=== PATIENT | female | born 1955 | race Caucasian/White ===

== ENCOUNTER 2017-02-26 18:33 | Inpatient (IN) | payer MEDICAID ==
[2017-02-26 19:03] VITALS: BMI 22.8
--- NOTE | 2017-02-26 19:19 | C.PDOC ---
History Of Present Illness 61 y/o female presents to the ED s/p syncopal episode yesterday while in the shower. Pt now complaining of chest pain. Pt denies head injury, palpitations, SOB, headache, vomiting or any other complaints. Chief Complaint (Nursing): Medical Clearance History Per: Patient History/Exam Limitations: no limitations Severity: Mild Recent travel outside of the [place]: No Past Medical History Reviewed: Historical Data, Nursing Documentation, Vital Signs Vital Signs: Last Vital Signs Temp 97.7 F 02/26/17 19:03 Pulse 72 02/26/17 20:19 Resp 20 02/26/17 20:19 BP 147/91 H 02/26/17 20:19 Pulse Ox 100 02/26/17 22:40 - Medical History PMH: Arthritis, HTN Family History: States: Unknown Family Hx - Social History Hx Alcohol Use: No Hx Substance Use: No - Immunization History Hx Tetanus Toxoid Vaccination: No Hx Influenza Vaccination: No Review Of Systems Except As Marked, All Systems Reviewed And Found Negative. Constitutional: Negative for: Fever Cardiovascular: Positive for: Chest Pain. Negative for: Palpitations Respiratory: Negative for: Shortness of Breath Gastrointestinal: Negative for: Vomiting Neurological: Positive for: Other (syncopal episode). Negative for: Weakness, Numbness, Headache, Dizziness Physical Exam - Physical Exam Appears: Non-toxic, No Acute Distress Skin: Warm, Dry, No Rash Head: Atraumatic, Normacephalic Eye(s): bilateral: PERRL, EOMI Nose: Normal Neck: Normal ROM, Supple Chest: Symmetrical, Tenderness (diffuse) Cardiovascular: Rhythm Regular, No Murmur Respiratory: Normal Breath Sounds, No Rales, No Rhonchi, No Wheezing Gastrointestinal/Abdominal: Normal Exam, Soft, No Tenderness Extremity: Normal ROM, No Pedal Edema Extremity: Bilateral: Atraumatic Neurological/Psych: Oriented x3, Normal Speech, Normal Cognition, Normal Motor, Normal Sensation Gait: Steady ED Course And Treatment - Laboratory Results Result Diagrams: 02/26/17 19:55 02/26/17 19:55 ECG: Interpreted By Me, Viewed By Me ECG Interpretation: No Acute Changes, Abnormal Interpretation Of ECG: unusual P-axis, possible ectopic atrial rhtyhm, abnormal tracings Rate From EC O2 Sat by Pulse Oximetry: 100 (on room air) Pulse Ox Interpretation: Normal - Radiology CXR: Interpreted by Me CXR Interpretation: Yes: No Acute Disease. No: Infiltrates, Cardiomegaly - CT Scan/US CT head Other Rad Studies (CT/US): Read By Radiologist, Radiology Report Reviewed CT/US Interpretation: EXAM: CT Head Without Intravenous Contrast. CLINICAL HISTORY: 61 years old, female; Pain; Headache; Headache not specified. TECHNIQUE: Axial computed tomography images of the head/brain without intravenous contrast. This CT exam. was performed using one or more of the following dose reduction techniques: automated exposure. control, adjustment of the mA and/or kV according to patient size, and/or use of iterative. reconstruction technique. COMPARISON: No relevant prior studies available. FINDINGS: Brain: Tiny hypodensities in the left frontal cortex posteriorly it must reflect chronic microvascular. ischemic changes. No hemorrhage. Ventricles: Unremarkable. No ventriculomegaly. Bones/joints: Unremarkable. No acute fracture. Soft tissues: Unremarkable. Sinuses: Unremarkable as visualized. No acute sinusitis. Mastoid air cells: Unremarkable as visualized. No mastoid effusion. IMPRESSION: No acute findings. Thank you for allowing us to participate in the care of your patient. Dictated and Authenticated by: South Kellogg MD. 02/26/2017 8:13 PM Eastern Time ([place] & [place]) NIHSS Stroke Scale - Date/Time Evaluation Performed Date Performed: 02/26/17 Time Performed: 19:21 When Was NIHSS Performed: Baseline - How Severe is the Stroke Level of Consciousness: 0=Alert LOC to Questions: 0=Both comments correct LOC to commands: 0=Obeys both correctly Best Gaze: 0=Normal Visual: 0=No visual loss Facial: 0=Normal Motor Arm - Left: 0=No drift Motor Arm - Right: 0=No drift Motor Leg - Left: 0=No drift Motor Leg - Right: 0=No drift Limb Ataxia: 0=Absent Sensory: 0=Normal Best Language: 0=No aphasia Dysarthia: 0=Normal articulation Extinction & Inattention (Neglect): 0=Normal, no object Score: 0 Medical Decision Making Medical Decision Making: Plan: CT head, EKG, labs, IV fluids Disposition Discussed With : Holden Merrill Doctor Will See Patient In The: Hospital Counseled Patient/Family Regarding: Diagnosis - Disposition Disposition: HOSPITALIZED Disposition Time: 22:40 Condition: STABLE - POA Present On Arrival: None - Clinical Impression Clinical Impression: Syncope - Scribe Statement The provider has reviewed the documentation as recorded by the Scribe Constantin Edwards Provider Attestation: All medical record entries made by the Scribe were at my direction and personally dictated by me. I have reviewed the chart and agree that the record accurately reflects my personal performance of the history, physical exam, medical decision making, and the department course for this patient. I have also personally directed, reviewed, and agree with the discharge instructions and disposition.
[2017-02-26 20:03] LABS: BASO % 0.7 % (0.0-2.0); EOS # 0.1 K/uL (0.0-0.7); EOS % 0.8 % (0.0-4.0); HEMATOCRIT 38.5 % (34.0-47.0); LYMPH # 1.7 K/uL (1.0-4.3); LYMPH % 26.2 % (20.0-40.0); MEAN CELL VOLUME 85.3 fL (81.0-99.0); MEAN CORPUSCULAR HEMOGLOBIN 28.3 pg (27.0-31.0); MEAN CORPUSCULAR HGB CONC 33.2 g/dL (33.0-37.0); MONO # 0.3 K/uL (0.0-0.8); MONO % 4.8 % (0.0-10.0); RED CELL DISTRIBUTION WIDTH 12.5 % (11.5-14.5); WHITE BLOOD COUNT 6.5 K/uL (4.8-10.8)
[2017-02-26 20:05] LABS: CHLORIDE 99 mmol/L (98-107)
[2017-02-26 20:06] LABS: POTASSIUM 4.2 mmol/L (3.6-5.2); SODIUM 141 mmol/L (132-148)
[2017-02-26 20:08] LABS: BILIRUBIN,TOTAL 0.6 mg/dL (0.2-1.3); GFR AFRICAN-AMERICAN > 60
[2017-02-26 20:09] LABS: ALB/GLOB RATIO 1.2 (1.0-2.1); ALKALINE PHOSPHATASE 62 U/L (38-126); ALT/SGPT 30 U/L (9-52); AST/SGOT 53 U/L (14-36); BLOOD UREA NITROGEN 18 mg/dL (7-17); CARBON DIOXIDE 26 mmol/L (22-30); GLUCOSE,RANDOM 104 mg/dL (65-105); TOTAL PROTEIN 8.5 g/dL (6.3-8.3)
[2017-02-27] MEDS: Nitroglycerin 2% Ointment Foilpak UD TOP SCH ×4 (01:20→18:30)
[2017-02-27 08:13] VITALS: RESP 20
--- NOTE | 2017-02-27 08:39 | CT ---
PROCEDURE: CT HEAD WITHOUT CONTRAST. HISTORY: Headache COMPARISON: None available. TECHNIQUE: Axial computed tomography images were obtained through the head/brain without intravenous contrast. Radiation dose: Total exam DLP = 821 mGy-cm. FINDINGS: HEMORRHAGE: No intracranial hemorrhage. BRAIN: No mass effect or edema. Scattered focal lucencies in the subcortical and periventricular white matter suggestive for chronic microvascular ischemic change. Small hypodensities in the left frontal cortex posteriorly which may reflect chronic microvascular ischemic changes. VENTRICLES: Unremarkable. No hydrocephalus. CALVARIUM: Unremarkable. PARANASAL SINUSES: Unremarkable as visualized. No significant inflammatory changes. MASTOID AIR CELLS: Unremarkable as visualized. No inflammatory changes. OTHER FINDINGS: None. IMPRESSION: Chronic microvascular ischemic changes. If focal neurologic deficit persists, consider MRI. These findings were preliminarily reported at 8:13 p.m. on 02/26/[address] South Kellogg from [facility].
--- NOTE | 2017-02-27 08:47 | CON ---
DATE: 02/27/2017 REASON FOR CONSULTATION: Syncopal attack. CHIEF COMPLAINT: The patient was advised to come to [facility] with a history of syncopal attac k at home after taking her shower. From neurological point of view, I was called in to evaluate her for further management. HISTORY OF PRESENT ILLNESS: The patient is a 61-year-old right-handed female who has been s uffering from headache for many years, has been on multiple medications, being stable with that medic ation for her headache. Without medication, she cannot survive. Her headache seems to be controlled with her current medication. She went to take a shower yesterday morning normal. At the time after taking shower, when she was stepping out of the tub, the next thing she realized she was on the floo r. She hurt her hip and left shoulder. It seems a few minutes she lost consciousness and she got up on her own. No similar episodes happened in the past. No history of urine or bowel incontinence at the scene. No bitten tongue. She denies any focal weakness following this event. PAST MEDICAL HISTORY: Headache and back pain. PERSONAL HISTORY: Denies smoking or alcohol use. MEDICATIONS: Naproxen, aspirin, Lioresal, Lopressor, Neurontin, Plaquenil, Protonix, and Topamax. REVIEW OF SYSTEMS: As per H and P. PHYSICAL EXAMINATION: VITAL SIGNS: Blood pressure 111/62, mean arterial pressure of 78, respiratory rate 16, temperature 9 8.2, pulse rate 62 regular. NECK: Supple. No carotid bruit. HEART: Sounds regular. CHEST: Fair air entry. EXTREMITIES: No edema in legs. NEUROLOGIC EXAMINATION: MENTAL STATUS: She is awake, alert, oriented to person, place, and time. Speech is clear. Naming, repetition, fluency, comprehension all within normal. CRANIAL NERVES: Visual field intact. Pupils reactive to light. Extraocular movement normal, no nys tagmus. No facial sensory deficit, no facial asymmetry. Hearing is normal. Tongue is midline. Goo d gag. MOTOR: On outstretched hand with eyes closed, no drift noted. Power is symmetric on either side. DEEP TENDON REFLEXES: Biceps, brachioradialis, triceps are 1+. Both knees are absent. Both ankles are absent. Plantars are downgoing. SENSORY: Bilateral distal sensory motor neuropathy, consistent with absent reflexes and distal muscl e atrophy. HAND: Showed Jenn nodules, and distal/proximal phalanx of the right index finger suggestive of a swan neck deformity consistent with possible rheumatoid arthritis. GAIT: Normal. CONCLUSION: Upon reviewing her history and neurological examination, the patient has been presenting with new onset of syncopal attack. From neurological point of view, neurogenic causes including travis tebrobasilar insufficiency versus convulsion should be worked up. However, other causes including va sovagal and cardiogenic causes should be ruled out. 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 BLOOD WORKUP: WBC 6.5, hemoglobin 12.8, hematocrit 38.5, platelets 224, D-dimer less than 200. Sodi um 141, potassium 4.2, chloride 99, bicarbonate 26, BUN 18, creatinine 0.8, GFR more than 60, glucose 104, calcium 9.0. AST 53, ALT 50, troponin 0.0120. RECOMMENDATIONS: 1. Hydration. 2. Continue the present medications what she has been taking. 3. I also recommended her to have a carotid Doppler, echocardiogram, EEG and MRI of the brain to rul e out neurogenic causes for the syncope. 4. The patient's condition has been discussed. 5. Multiple medications can be tapered off for her headache when she is stable. Juan C Forman MD cc: [id number] TT: 02/27/2017 08:46:24 Confirmation # [id number] Dictation # [id number] mn
[2017-02-27] MEDS ORDERED: Gadodiamide 287 MG/ML VIAL (15ML) IV ONE (09:07)
--- NOTE | 2017-02-27 09:12 | RAD ---
HISTORY: episode of syncope COMPARISON: No prior. TECHNIQUE: Chest PA and lateral FINDINGS: LUNGS: No active pulmonary disease. PLEURA: No significant pleural effusion identified. No pneumothorax apparent. CARDIOVASCULAR: Normal. OSSEOUS STRUCTURES: No significant abnormalities. VISUALIZED UPPER ABDOMEN: Normal. OTHER FINDINGS: None. IMPRESSION: No active disease.
--- NOTE | 2017-02-27 09:26 | MRI ---
PROCEDURE: MRI BRAIN WITHOUT CONTRAST HISTORY: R/O MASS ATTEN MESIAL TEMP LOBE /INSULAR CORTEX COMPARISON: None. TECHNIQUE: Multiplanar, multisequence MR images of the brain were obtained without intravenous contrast enhancement. FINDINGS: HEMORRHAGE: None DWI: No evidence of an acute or early subacute infarction. BRAIN PARENCHYMA: No mass effect or edema. Minimal chronic microvascular changes are seen in the deep white matter of both hemispheres. There are no abnormality seen in the region of the insular cortex or temporal lobe VENTRICLES: Unremarkable. No hydrocephalus. CRANIUM: Unremarkable. ORBITS: Grossly unremarkable. PARANASAL SINUSES/MASTOIDS: Clear VASCULAR SYSTEM: Skull base flow voids intact. OTHER FINDINGS: None. IMPRESSION: Unremarkable non contrast enhanced MRI of the brain.
--- NOTE | 2017-02-27 09:29 | MRI ---
PROCEDURE: Magnetic Resonance Angiography Brain HISTORY: syncope, HTN, lupus COMPARISON: None available. TECHNIQUE: 3D time of flight MR angiography of the intracranial arteries was performed. Rotating maximum intensity projection images were generated. FINDINGS: INTERNAL CEREBRAL ARTERIES: Unremarkable. The skull base, petrous, cavernous and supraclinoid segments are bilaterally widely patient. ANTERIOR CEREBRAL ARTERIES: Unremarkable. A1 and A2 segments are widely patent. Smaller distal branches unremarkable, as visualized. MIDDLE CEREBRAL ARTERIES: Unremarkable. M1 and M2 segments are widely patent. Perisylvian branches grossly symmetric. POSTERIOR CIRCULATION: Basilar Artery: Unremarkable. Distal Vertebral Arteries: Unremarkable. Posterior Cerebral Arteries: Unremarkable. Posterior Inferior Cerebellar Arteries: Unremarkable. ANEURYSM/ VASCULAR MALFORMATIONS: None. OTHER FINDINGS: None. IMPRESSION: Unremarkable MR angiography of the brain.
[2017-02-27] MEDS ORDERED: Aspirin 325 mg EC Tablets PO SCH (10:00)
[2017-02-27] MEDS: Pantoprazole 40 mg EC Tab PO SCH (10:11)
[2017-02-27] MEDS: Naproxen 550 mg Tab PO SCH ×2 (10:11→17:42)
[2017-02-27] MEDS: Sucralfate 1 gm/10 ml Oral Susp UD PO SCH ×2 (10:12→17:42)
[2017-02-27 11:26] LABS: PHOSPHOROUS 4.1 mg/dL (2.5-4.5)
--- NOTE | 2017-02-27 20:09 | CON ---
DATE: 02/27/2017 REASON FOR CONSULTATION: Syncopal episode. HISTORY OF PRESENT ILLNESS: The patient is a 61-year-old female originally from [facility] who was d iagnosed with systemic lupus erythematosus in the past based on blood tests and arthritis symptoms ac cording to the patient. The patient is not taking any medications for lupus. She had a dizzy spell and fainted while in the shower. The patient does not report experiencing palpitation and sustained no injuries according to her. The patient denies any prior similar episodes in the past. SOCIAL HISTORY: The patient is a nonsmoker, nondrinker. MEDICATIONS: Aspirin 81 mg once a day, Carafate 1 gram twice a day, Lopressor 12.5 mg twice a day, N eurontin 100 mg t.i.d., Plaquenil 200 mg twice a day, Protonix 40 mg p.o. once a day. The patient received influenza vaccine as well pneumococcal vaccine. PHYSICAL EXAMINATION: GENERAL: The patient is a middle-aged female who does not appear to be in any distress. VITAL SIGNS: Blood pressure 139/86, heart rate 78, temperature 99, respirations 20. HEENT: Normocephalic. NECK: No JVD. CHEST: Clear. HEART: S1, S2 regular. EXTREMITIES: No edema. LABORATORY DATA: CBC is within normal limits. SMA-7 is within normal limits except for BUN of 18. One set of troponin is negative. D-dimer is within normal limits. Head MRA was unremarkable. Brain MRI was unremarkable and noncontrast enhanced MRI of the brain. EKG revealed ectopic atrial rhythm. ASSESSMENT: 1. Syncopal episode. 2. History of systemic lupus erythematosus. RECOMMENDATIONS: Continue current Lopressor 12.5 mg once a day, aspirin 81 mg once a day, Plaquenil at 200 mg once a day. I will review the echocardiographic study performed today. Willy Mei MD cc: [id number] TT: 02/27/2017 20:08:51 Confirmation # [id number] Dictation # [id number] mn
--- NOTE | 2017-02-27 20:38 | CARD ---
APPROVED REPORT EXAM: Two-dimensional and M-mode echocardiogram with Doppler and color Doppler. Other Information Quality : GoodRhythm : INDICATION Cardiomyopathy Syncope CARDIOEMBOLIC RISK FACTORS Hypertension M-Mode DIMENSIONS RVDd1.72 (2.1-3.2cm)Left Atrium (MM)2.88 (2.5-4.0cm) IVSd0.93 (0.7-1.1cm)Aortic Root2.54 (2.2-3.7cm) LVDd4.46 (4.0-5.6cm)Aortic Cusp Exc.1.78 (1.5-2.0cm) PWd0.73 (0.7-1.1cm)FS (%) 51 % LVDs2.20 (2.0-3.8cm)LVEF (%)82 (>50%) Aortic Valve AI P 1/2 [id number] Mitral Valve MV E Xnzkxbhx86.7cm/sMV A Zqwelhbp61.4cm/sE/A ratio1.3 TDI E/Lateral E'0.0E/Medial E'0.0 Tricuspid Valve TR Peak [id number]/sTR Peak Gr.[id number] LEFT VENTRICLE The left ventricle is normal size. There is normal left ventricular wall thickness. The left ventricular function is normal. The left ventricular ejection fraction is within the normal range. No regional wall motion abnormalities noted. The left ventricular diastolic function is normal. No left ventricle thrombus noted on this study. There is no ventricular septal defect visualized. There is no left ventricular aneurysm. There is no mass noted in the left ventricle. RIGHT VENTRICLE The right ventricle is normal size. There is normal right ventricular wall thickness. The right ventricular systolic function is normal. ATRIA The left atrium size is normal. The right atrium size is normal. The interatrial septum is intact with no evidence for an atrial septal defect. AORTIC VALVE The aortic valve is normal in structure and function. Trace aortic regurgitation is present. There is no aortic valvular stenosis. There is no aortic valvular vegetation. MITRAL VALVE The mitral valve is normal in structure and function. There is no evidence of mitral valve prolapse. There is no mitral valve stenosis. There is mild mitral valve regurgitation noted. TRICUSPID VALVE The tricuspid valve is normal in structure and function. There is mild tricuspid valve regurgitation noted. There is no tricuspid valve prolapse or vegetation. There is no tricuspid valve stenosis. PULMONIC VALVE The pulmonary valve is normal in structure and function. There is no pulmonic valvular regurgitation. There is no pulmonic valvular stenosis. GREAT VESSELS The aortic root is normal in size. The ascending aorta is normal in size. The pulmonary artery is normal. The IVC is normal in size and collapses >50% with inspiration. PERICARDIAL EFFUSION The pericardium appears normal. There is no pleural effusion. <Conclusion> Normal LV EF Trace aortic regurgitation.
--- NOTE | 2017-02-27 20:53 | EEG ---
DATE: 02/27/2017 This is a 16-channel electroencephalogram of awake and drowsy adult. During the study, photic stimul ation was performed. Hyperventilation was not performed. The resting electroencephalogram consists of moderate voltage 9-11 Hz. Alpha activity seen at pariet al and occipital leads when eyes closed. Alpha activity symmetrically attenuated with eye opening. Intermittent high amplitude 2-3 Hz delta activity seen, which is consistent with early drowsiness. T he photic stimulation did not evoke driving response noted at 2-20 Hz. IMPRESSION: This is a normal electroencephalogram of awake and drowsy adult. During the study dmitry verdugo electroencephalographic paroxysmal activities nor focal slowing noted. Juan C Forman MD cc: [id number] TT: 02/27/2017 20:52:51 Confirmation # [id number] Dictation # [id number] jn
--- NOTE | 2017-02-27 21:27 | CARD ---
APPROVED REPORT EKG Measurement Heart [id number] NV [id number] <Conclusion> Unusual P axis, possible ectopic atrial rhythm Abnormal ECG
[2017-02-28] MEDS: Nitroglycerin 2% Ointment Foilpak UD TOP SCH ×2 (00:30→05:40)
[2017-02-28 07:11] LABS: BASO % 0.5 % (0.0-2.0); EOS # 0.2 K/uL (0.0-0.7); EOS % 1.9 % (0.0-4.0); HEMATOCRIT 37.8 % (34.0-47.0); LYMPH # 2.3 K/uL (1.0-4.3); LYMPH % 26.5 % (20.0-40.0); MEAN CELL VOLUME 85.8 fL (81.0-99.0); MEAN CORPUSCULAR HEMOGLOBIN 28.3 pg (27.0-31.0); MEAN PLATELET VOLUME 7.9 fL (7.2-11.7); MONO # 0.6 K/uL (0.0-0.8); MONO % 6.5 % (0.0-10.0); RED CELL DISTRIBUTION WIDTH 12.8 % (11.5-14.5); WHITE BLOOD COUNT 8.6 K/uL (4.8-10.8)
[2017-02-28 07:19] LABS: CHLORIDE 100 mmol/L (98-107); POTASSIUM 3.7 mmol/L (3.6-5.2); SODIUM 144 mmol/L (132-148)
[2017-02-28 07:21] LABS: ALB/GLOB RATIO 1.1 (1.0-2.1); ALKALINE PHOSPHATASE 65 U/L (38-126); AST/SGOT 28 U/L (14-36); BILIRUBIN,TOTAL 0.7 mg/dL (0.2-1.3); BLOOD UREA NITROGEN 18 mg/dL (7-17); CARBON DIOXIDE 26 mmol/L (22-30); CHOLESTEROL 124 mg/dL (0-199); GFR AFRICAN-AMERICAN > 60; GLUCOSE,RANDOM 94 mg/dL (65-105); TOTAL PROTEIN 7.2 g/dL (6.3-8.3)
[2017-02-28 07:22] LABS: ALT/SGPT 27 U/L (9-52); CALCIUM 8.2 mg/dl (8.6-10.4)
--- NOTE | 2017-02-28 07:43 | PN ---
DATE: 02/28/2017 NEUROLOGICAL PROBLEM: Syncope, rule out neurogenic causes. PHYSICAL EXAMINATION: VITAL SIGNS: Blood pressure 143/83, mean arterial pressure 103, respiratory rate 16, temperature 98 degrees Fahrenheit, pulse rate 74 ____. NEUROLOGIC: The patient is awake. Mentation is normal. No episode of syncopal attack or any seizur e activities during the hospitalization. Her examination is unchanged to compare with her previous examination. WORKUP: MRI of the brain: No acute pathologies noted. MR angiogram: No acute pathology or stenosi s is noted. Electroencephalogram: No electrographic focal slowing or paroxysmal activities noted. From neurological point of view, the patient is cleared. The patient should have a followup visit [facility]. The patient should need continuous ambulatory electroencephalogram, which can be done as outp atient, to rule out any electrographic abnormal activities. This should be done if cardiac cause is ruled out. The patient's condition has been well discussed. The patient agreed with the plan of management. Juan C Forman MD cc: [id number] TT: 02/28/2017 07:42:48 Confirmation # [id number] Dictation # [id number] aditya
[2017-02-28 07:51] LABS: THYROID STIMULATING HORMONE 3.77 mIU/L (0.46-4.68)
--- NOTE | 2017-02-28 08:06 | HP ---
The patient is a 61-year-old female with a history of lupus, arthritis, and hypertension. The patien darío came to my office complaining of a sudden onset of loss of consciousness at home. The patient stat ed that she was in the bathtub she just passed and found herself in the bathtub. The patient hit her head and the shoulders. The patient does not remember the circumstances of falling, and also the philipp mendoza admitted having some palpitations at that time. The patient had a similar symptoms even 1 or 2 weeks ago where the patient fell and slipped, and so I have asked the patient to go to the [facility] for evaluation and admission, which the patient has done the same day. ALLERGIES: THE PATIENT HAS ALLERGY. PAST MEDICAL HISTORY: History of lupus, arthritis, and hypertension. SOCIAL HISTORY: The patient is , has children. No history of smoking or alcohol abuse. FAMILY HISTORY: No inherited disease. REVIEW OF SYSTEMS: RESPIRATORY SYSTEM: The patient denied having shortness of breath. CARDIOVASCULAR: No chest pain, but the patient having episodes of palpitations off and on. GASTROINTESTINAL: nausea, vomiting. GENITOURINARY: No dysuria. NEUROLOGIC: The patient feels weak. PHYSICAL EXAMINATION: The patient is alert, awake, and oriented at this time, but obviously weak, and also the patient , and the blood pressure was 121/77, pulse 68, respiration 20, temperature 97.8. HEAD: Normocephalic, atraumatic. NECK: Supple. No JVD, no carotid bruit, and no thyroid mass. LUNGS: Clear. HEART: Regular rate and rhythm but there is some occasional extrasystole. ABDOMEN: Soft, nontender, no palpable mass, and positive bowel sounds. EXTREMITIES: There is no edema. NEUROLOGIC: The patient is alert and awake. No motor or sensory deficit noted. The patient has some blood tests. The WBC 6.5, hemoglobin 12.8, hematocrit 38.5, and platelet 224. Chemistry: Sodium is 131, potassium 4.2, chloride 90, BUN 18, and creatinine , calcium , p hosphorous 4.1, magnesium 2. AST 63, ALT 30, alkaline phosphatase 62. The troponin is less than 0.0 12, and C-reactive protein is 3.04, total protein 8.5, albumin 4.6, globulin 3.9. Vitamin B12 is 823 , and prolactin is 8.4. Coagulation: The D-dimer is less than 200. The patient had an EKG that is insignificant, and also the patient has . IMPRESSION: Syncope, lupus, hypertension. Rule out seizure disorder. So, the patient will be admitted to telemetry and have a consult with Dr. Forman, who is the neurologi st, and also Dr. Mei, rate quoting operator. The case was reviewed and discussed with Ragini Duque. Holden Merrill MD cc: [id number] TT: 02/27/2017 21:39:14 jn
[2017-02-28 08:31] VITALS: BP 93/54; PULSE 65; TEMP 97.8; O2SAT 98
[2017-02-28] MEDS: Naproxen 550 mg Tab PO SCH (09:27)
[2017-02-28] MEDS: Pantoprazole 40 mg EC Tab PO SCH (09:27)
[2017-02-28] MEDS: Sucralfate 1 gm/10 ml Oral Susp UD PO SCH (09:28)
--- NOTE | 2017-02-28 10:43 | VASCLAB ---
PROCEDURE: HISTORY: stenosis COMPARISON: None available. TECHNIQUE: Grayscale and duplex Doppler evaluation of the cervical carotid and vertebral arteries were performed. The common carotid, carotid bifurcations and cervical Internal Carotid Artery (ICA) and proximal External Carotid Artery (ECA) were evaluated. The vertebral arteries were evaluated for gross patency and flow direction. Report prepared by Adonay Garsia, BS, RVT FINDINGS: RIGHT CAROTID ARTERIES: 1. Common Carotid Artery: No significant focal plaque formation of the right common carotid artery. Maximum Peak Systolic velocity: 63 cm/sec: End-diastolic velocity 24 cm/sec. 2. Carotid Bifurcation: Patent with no significant focal plaque. Maximum Peak Systolic velocity: 52 cm/sec: End-diastolic velocity 17 cm/sec. 3. Internal Carotid Artery: Mild homogeneous plaque. 3.1. Proximal Segment: Peak systolic velocity 65 cm/sec: End-diastolic velocity 29 cm/sec - % stenosis 0-15% 3.2. Middle Segment: Peak systolic velocity 73 cm/sec: End-diastolic velocity 34 cm/sec - % stenosis 0-15% 3.3. Distal Segment: Peak systolic velocity 76 cm/sec: End-diastolic velocity 32 cm/sec - % stenosis 0-15% 4. External Carotid Artery: Mild calcific plaque formation. Peak systolic velocity 73 cm/sec 5. ICA/CCA Ratio: 1.2 LEFT CAROTID ARTERIES: 1. Common Carotid Artery: No significant focal plaque formation of the left common carotid artery. Maximum Peak Systolic velocity: 68 cm/sec: End-diastolic velocity 27 cm/sec. 2. Carotid Bifurcation: Mild homogeneous plaque formation. Maximum Peak Systolic velocity: 59 cm/sec: End-diastolic velocity 22 cm/sec. 3. Internal Carotid Artery: Minimal homogeneous plaque 3.1. Proximal Segment: Peak systolic velocity 65 cm/sec: End-diastolic velocity 27 cm/sec - % stenosis 0-15% 3.2. Middle Segment: Peak systolic velocity 80 cm/sec: End-diastolic velocity 36 cm/sec - % stenosis 0-15% 3.3. Distal Segment: Peak systolic velocity 79 cm/sec: End-diastolic velocity 34 cm/sec - % stenosis 0-15% 4. External Carotid Artery: Mild homogeneous plaque formation. Peak systolic velocity 74 cm/sec 5. ICA/CCA Ratio: 1.2 VERTEBRAL ARTERIES: 1. Right Vertebral Artery: The right vertebral artery flow direction is antegrade. 2. Left Vertebral Artery: The left vertebral artery flow direction is antegrade. OTHER FINDINGS: 1. Right Brachial Blood pressure: 158 mmHg. 2. Left Brachial Blood pressure: 156 mmHg. IMPRESSION: RIGHT: Duplex scan does not suggest hemodynamically significant stenosis of the right extracranial carotid arteries. LEFT: Duplex scan does not suggest hemodynamically significant stenosis of the left extracranial carotid arteries.
--- NOTE | 2017-02-28 11:40 | CP.PCM.PN ---
Subjective - Date & Time of Evaluation Date of Evaluation: 02/28/17 Time of Evaluation: 11:36 - Subjective Subjective: 61 Y/O FEMALE SEEN AND EXAMINED BY DR KOENIG TODAY, PMHX SYNCOPE, LUPUS, HTN, R/O SEIZURE, CT HEAD- NEGATIVE, MRI HEAD- NEGATIVE, MRA HEAD- NEGATIVE, PT CLEARED FOR D/C HOME TODAY PER DR KOENIG, DR CAMPA AND DR RÍOS, PT EDUCATED TO CONTINUE HOME MEDS, NEW RX FOR ASA 81 MG PO DAILY #30, DEPAKOTE DR 250 MG PO BID #[address] KOENIG, PT EDUCATED TO F/U WITH DR KOENIG IN 3-5 DAYS, F/U W/ DR CAMPA AND DR RÍOS IN OFFICE IN ONE WEEK, CALL DR KOENIG OFFICE IF ANY FURTHER QUESTIONS, RETURN TO ED IF ANY WORSENING S/S, AGREE, VERBALIZE UNDERSTANDING. Objective - Vital Signs/Intake and Output Vital Signs (last 24 hours): Temp Pulse Resp BP Pulse Ox 97.8 F 65 20 93/54 L 98 02/28/17 07:37 02/28/17 07:37 02/28/17 07:37 02/28/17 07:37 02/28/17 07:37 - Medications Medications: Current Medications Aspirin (Aspirin Chewable) 81 mg PO DAILY [facility] Last Admin: 02/28/17 09:27 Dose: 81 mg Baclofen (Lioresal) 10 mg PO BID [facility] Last Admin: 02/28/17 09:28 Dose: 10 mg Gabapentin (Neurontin) 100 mg PO TID [facility] Last Admin: 02/28/17 09:27 Dose: 100 mg Hydroxychloroquine Sulfate (Plaquenil) 200 mg PO BID [facility] Last Admin: 02/28/17 09:28 Dose: 200 mg Influenza Virus Vaccine (Afluria) 45 mcg IM .ONCE ONE Stop: 03/01/17 14:01 Metoprolol Tartrate (Lopressor) 12.5 mg PO BID [facility] Last Admin: 02/28/17 09:28 Dose: Not Given Naproxen (Anaprox Ds) 550 mg PO BID [facility] Last Admin: 02/28/17 09:27 Dose: 550 mg Nitroglycerin (Nitro-Bid 2% Oint) 1 ea TOP Q6H [facility] Last Admin: 02/28/17 05:40 Dose: 1 ea Pantoprazole Sodium (Protonix Ec Tab) 40 mg PO DAILY [facility] Last Admin: 02/28/17 09:27 Dose: 40 mg Pneumococcal Polyvalent Vaccine (Pneumovax 23 Vaccine) 0.5 ml IM .ONCE ONE Stop: 03/01/17 14:01 Sucralfate (Carafate Oral Susp) 1 gm PO BID [facility] Last Admin: 02/28/17 09:28 Dose: 1 gm Topiramate (Topamax) 25 mg PO HS [facility] Last Admin: 02/27/17 22:00 Dose: 25 mg - Labs Labs: 02/28/17 06:55 02/28/17 06:55
--- NOTE | 2017-02-28 19:53 | DS ---
This patient is a 61-year-old female with history of lupus, arthritis and hypertension. The patient came to my office, was complaining of loss of consciousness happening the day of coming to the office . The patient said that she just collapsed in the bathroom after taking a shower and also, patient w as complaining of palpitations, so patient was advised to go to the hospital immediately for evaluati on and the patient was admitted. The patient had a consult with Dr. Juan C Forman, neurologist, and Boone Mei, cardiology. The patient had different testing done including the MRI, echocardiogram, EEG, carotid Doppler, chest x-ray, head CT, EKG and MRA. All look apparently within normal range, no rmal limits. So the patient now has no more symptoms. She is comfortable. No dizziness, no chest p ain, no palpitation. We decided to discharge the patient home. However, the neurologist has mention ed that this patient may need to get a longer EEG, so we are going to consider to put the patient on Depakote 250 mg twice a day and we will continue to follow this patient in the office. Holden Merrill MD cc: [id number] TT: 02/28/2017 19:52:25 en
--- NOTE | 2017-02-28 19:58 | PN ---
DATE: 02/28/2017 Today, the patient is alert and awake. Denied any dizziness or shortness of breath, no chest pain, d enied any palpitation. The patient also denied any body ache. The patient has a blood pressure of 143/84, pulse is 94, respirations 20, temperature 98. NECK: Supple. No JVD. LUNGS: Clear. HEART: Regular rate and rhythm. ABDOMEN: Soft and nontender, no palpable mass. EXTREMITIES: There is no edema, and there is some tenderness with flexion of the knees. So, the patient has blood tests done, and the WBC it 8.6, hemoglobin 12.5, hematocrit 37.8, platelet 209. Chemistry: Sodium 144, potassium 2.7, chloride 100, bicarb 26, BUN 18, creatinine 0.7, calcium 8.2. AST 28, ALT 27, alkaline phosphatase 65, and RPR is nonreactive. Also, the patient has other tests done. The carotid Doppler was within normal limits, no significant focal plaque, and the echocardiogram also had an ejection fraction of 82%, apparently normal LV func tion. Also the patient had MRI of the brain. Nonsignificant lesion, no mass effect or edema, minim al chronic microvascular changes in the deep white matter to of both hemispheres. So, the patient also was seen today by Dr. Juan C Forman, the neurologist, so the patient is cleared n eurologically. So, we are going to be discharging this patient today. Holden Merrill MD cc: [id number] TT: 02/28/2017 19:57:23 Confirmation # [id number] Dictation # [id number]
[2017-03-01] MEDS ORDERED: Pneumococcal 23-Valent Vaccine IM ONE (14:00)
[2017-03-01] MEDS ORDERED: Influenza Virus Vaccine 45 mcg/0.5 ml Syr IM ONE (14:00)
== END 2017-02-28 12:48 | disposition home or self-care (01) ==
LOC: C.ER 18:33 → C.9E 22:40 → C.6T 23:24 → OBSVTOIN 02-27
PROVIDERS: ADMIT Specialist; ATTEND Specialist
DX: R55 Syncope and collapse (principal); M32.9 Systemic lupus erythematosus, unspecified; M35.9 Systemic involvement of connective tissue, unspecified; M06.9 Rheumatoid arthritis, unspecified; I10 Essential (primary) hypertension; G62.89 Other specified polyneuropathies; M62.58 Muscle wasting and atrophy, not elsewhere classified, other site

== ENCOUNTER 2017-08-17 11:39 | Emergency (ER) | payer MEDICAID ==
[2017-08-17 11:39] VITALS: BMI 22.8
[2017-08-17 11:54] VITALS: PULSE 87; O2SAT 100
[2017-08-17 12:06] VITALS: BP 170/94; RESP 16; TEMP 98.2
--- NOTE | 2017-08-17 12:38 | C.PDOC ---
History Of Present Illness Patient is a 61 y/o female who presents to the ED with complaints of posterior rib pain that radiates to the left chest for the past 3 years. Patient has a Hx of Lupus and arthritis in which she takes Neurontin x3/day and Celebrex x1/day. Patient reports she wants to consider other medicine options. No other complaints at this time. Time Seen by Provider: 08/17/17 12:23 Chief Complaint (Nursing): Chest Pain History Per: Patient History/Exam Limitations: no limitations Current Symptoms Are (Timing): Still Present Recent travel outside of the [place]: No Additional History Per: Patient Past Medical History Reviewed: Historical Data, Nursing Documentation, Vital Signs Vital Signs: Last Vital Signs Temp 98.2 F 08/17/17 12:04 Pulse 87 08/17/17 12:04 Resp 16 08/17/17 12:04 BP 170/94 H 08/17/17 12:04 Pulse Ox 100 08/17/17 12:38 - Medical History PMH: Arthritis, HTN Denies: Chronic Kidney Disease Surgical History: No Surg Hx Family History: States: Unknown Family Hx - Social History Hx Alcohol Use: No Hx Substance Use: No - Immunization History Hx Tetanus Toxoid Vaccination: No Hx Influenza Vaccination: No Review Of Systems Constitutional: Negative for: Fever, Chills Cardiovascular: Positive for: Chest Pain (L chest radiation. ) Respiratory: Negative for: Shortness of Breath Gastrointestinal: Negative for: Nausea, Vomiting Musculoskeletal: Positive for: Back Pain (posterior rib pain. ) Physical Exam - Physical Exam Appears: Well, Non-toxic, No Acute Distress Skin: Normal Color, Warm, Dry, No Rash Head: Atraumatic, Normacephalic Oral Mucosa: Moist Chest: Symmetrical Cardiovascular: Rhythm Regular, No Murmur Respiratory: Normal Breath Sounds, No Rales, No Rhonchi, No Wheezing Gastrointestinal/Abdominal: Soft, No Tenderness Back: Normal Inspection, No CVA Tenderness, No Vertebral Tenderness Neurological/Psych: Oriented x3, Normal Speech, Normal Cognition ED Course And Treatment O2 Sat by Pulse Oximetry: 100 (Room air) Pulse Ox Interpretation: Normal Medical Decision Making Medical Decision Making: Plan: EKG ordered. Patient is to follow up with PCP after discharge. h/o Lupus with lupus arthritis and L posterior rib pain for 3 years, taking Gapapentine x 3 years for this specific pain, today wants new eval and meds. No pain at this time Prescribed Celebrex BID, taking once salazar @ 4PM, but the L rib achy pain recurrs daily approx 6PM. No narcotics prescribed nor requested Exam normal for L postiorior ribs and + L parasternal tenderness @ T4/5 c/w chronic costochondritis normal EKG After explanation, pt defers further w/u and prefers to f/u with PMD tomorrow Disposition Doctor Will See Patient In The: Office Counseled Patient/Family Regarding: Studies Performed, Diagnosis - Disposition Referrals: Holden Merrill MD [Staff Provider] - Disposition: HOME/ ROUTINE Disposition Time: 12:38 Condition: GOOD Additional Instructions: Continue your normal medication regimen Take your Celebrex TWICE a day, 8AM and 4PM to help PREVENT your L posterior rib discomfort in the afternoons. Follow-up with Dr. Paredes tomorrow as needed. Instructions: Autoimmune Disease (ED), Arthritis (ED) Forms: [employer] (Serbian) - Clinical Impression Clinical Impression: Lupus arthritis - Scribe Statement The provider has reviewed the documentation as recorded by the Scribe Laila Muñoz All medical record entries made by the Scribe were at my direction and personally dictated by me. I have reviewed the chart and agree that the record accurately reflects my personal performance of the history, physical exam, medical decision making, and the department course for this patient. I have also personally directed, reviewed, and agree with the discharge instructions and disposition.
--- NOTE | 2017-08-18 15:56 | CARD ---
APPROVED REPORT EKG Measurement Heart [id number] <Conclusion> Normal sinus rhythm Possible Left atrial enlargement Borderline ECG
== END 2017-08-17 12:42 | disposition home or self-care (01) ==
LOC: C.ER 11:39
DX: M32.9 Systemic lupus erythematosus, unspecified (principal); M19.90 Unspecified osteoarthritis, unspecified site

== ENCOUNTER 2018-01-15 12:33 | Emergency (ER) | payer MEDICAID ==
[2018-01-15 12:33] VITALS: BMI 22.8
--- NOTE | 2018-01-15 14:19 | C.PDOC ---
History Of Present Illness 62-year-old female, presents to the emergency department with complaints of cough, fever, congestion and generalized body aches that started last night. She denies any rashes, recent travel, diarrhea, abdominal pain, vomiting, symptoms, or any other associated symptoms. No other complaints at this time. Time Seen by Provider: 01/15/18 13:29 Chief Complaint (Nursing): Flu-like Symptoms History Per: Patient History/Exam Limitations: no limitations Onset/Duration Of Symptoms: Hrs Current Symptoms Are (Timing): Still Present Past Medical History Reviewed: Historical Data, Nursing Documentation, Vital Signs Vital Signs: Last Vital Signs Temp 99.1 F 01/15/18 16:23 Pulse 93 H 01/15/18 16:23 Resp 16 01/15/18 16:23 BP 117/75 01/15/18 16:23 Pulse Ox 98 01/15/18 17:36 - Medical History PMH: Arthritis, HTN Family History: States: No Known Family Hx - Social History Hx Alcohol Use: No Hx Substance Use: No - Immunization History Hx Tetanus Toxoid Vaccination: No Hx Influenza Vaccination: No Hx Pneumococcal Vaccination: No Review Of Systems Constitutional: Positive for: Fever, Malaise. Negative for: Weakness Cardiovascular: Negative for: Chest Pain, Palpitations Respiratory: Positive for: Cough, Sputum. Negative for: Shortness of Breath Gastrointestinal: Negative for: Nausea, Vomiting Physical Exam - Physical Exam Appears: Non-toxic, No Acute Distress Skin: Normal Color, Warm, Dry, No Diaphoretic, No Rash Head: Normacephalic Eye(s): bilateral: PERRL Ear(s): Bilateral: Normal Nose: Normal, No Flaring, No Discharge Oral Mucosa: Moist Lips: Normal Appearing Throat: No Erythema, No Exudate Neck: Normal ROM, Trachea Midline, Supple Chest: Symmetrical Cardiovascular: Rhythm Regular, No Murmur Respiratory: Normal Breath Sounds, No Accessory Muscle Use, No Rales, No Rhonchi , No Wheezing Extremity: Normal ROM Neurological/Psych: Oriented x3, Normal Speech ED Course And Treatment - Laboratory Results Result Diagrams: 01/15/18 15:28 01/15/18 15:28 O2 Sat by Pulse Oximetry: 98 (RA) Pulse Ox Interpretation: Normal Progress Note: Bloodwork and CXR ordered and reviewed. Patient treated with IVFs , Tamiflu, Toradol, Tylenol and K-Chloride. On re-evaluation, Patient is resting comfortably, tolerating PO, and is afebrile at this time. Clinical signs and symptoms are not suggestive of sepsis, meningitis, UTI, pneumonia, intra-abdominal pathology, or cellulitis. Patient will be discharge home, and instructed to follow up with his/her physician in 1-2 days without fail. Patient was instructed to return for any worsening symptoms, persistent fever, neck pain, rash, abdominal pain, or vomiting. Disposition Counseled Patient/Family Regarding: Diagnosis, Need For Followup, Rx Given - Disposition Referrals: [facility] [Outside] Disposition: HOME/ ROUTINE Disposition Time: 17:05 Condition: STABLE Additional Instructions: FOLLOW UP WITH YOUR DOCTOR IN 1-2 DAYS DRINK PLENTY OF FLUIDS USE MEDICATIONS DIRECTED RETURN TO ER IF SYMPTOMS WORSEN Prescriptions: Acetaminophen [Tylenol 325mg tab] 650 mg PO Q6 PRN #30 tab PRN Reason: pain/fever Benzonatate [Tessalon Perles] 100 mg PO BID PRN #15 sgl PRN Reason: Cough Oseltamivir Phosphate [Tamiflu] 75 mg PO BID #10 capsule Instructions: Viral Syndrome (DC) Forms: [employer] (Wallisian) Print Language: MONGOLIAN - Clinical Impression Clinical Impression: Influenza-like illness - Scribe Statement The provider has reviewed the documentation as recorded by the Scribe (Mariam Moreno) All medical record entries made by the Scribe were at my direction and personally dictated by me. I have reviewed the chart and agree that the record accurately reflects my personal performance of the history, physical exam, medical decision making, and the department course for this patient. I have also personally directed, reviewed, and agree with the discharge instructions and disposition.
[2018-01-15] MEDS ORDERED: Sodium Chloride 0.9% 1,000 ML IV ONE (14:49)
[2018-01-15 15:32] LABS: BASO % 0.4 % (0.0-2.0); EOS % 0.5 % (0.0-4.0); HEMOGLOBIN 12.4 g/dL (11.0-16.0); LYMPH # 0.4 K/uL (1.0-4.3); LYMPH % 7.5 % (20.0-40.0); MEAN CELL VOLUME 84.8 fL (81.0-99.0); MEAN CORPUSCULAR HEMOGLOBIN 29.1 pg (27.0-31.0); MEAN CORPUSCULAR HGB CONC 34.3 g/dL (33.0-37.0); MEAN PLATELET VOLUME 7.3 fL (7.2-11.7); MONO # 0.5 K/uL (0.0-0.8); MONO % 8.4 % (0.0-10.0); NEUT # 4.6 K/uL (1.8-7.0); NEUT % 83.2 % (50.0-75.0); PLATELET COUNT 168 K/uL (130-400); RBC 4.26 Mil/uL (3.80-5.20); RED CELL DISTRIBUTION WIDTH 13.2 % (11.5-14.5); WHITE BLOOD COUNT 5.5 K/uL (4.8-10.8)
--- NOTE | 2018-01-15 15:40 | RAD ---
PROCEDURE: CHEST RADIOGRAPH, 1 VIEW HISTORY: Fever and cough COMPARISON: 12/25/2017 FINDINGS: LUNGS: Clear. PLEURA: No pneumothorax or pleural fluid seen. CARDIOVASCULAR: No radiographic findings to suggest acute or significant cardiovascular disease. OSSEOUS STRUCTURES: No significant abnormalities. VISUALIZED UPPER ABDOMEN: Normal. OTHER FINDINGS: None. IMPRESSION: No active disease. No acute/significant interval changes.
[2018-01-15 15:47] LABS: ALB/GLOB RATIO 1.1 (1.0-2.1); ALBUMIN 3.8 g/dL (3.5-5.0); ALT/SGPT 73 U/L (9-52); AST/SGOT 89 U/L (14-36); BLOOD UREA NITROGEN 16 mg/dL (7-17); CALCIUM 8.3 mg/dl (8.6-10.4); GFR AFRICAN-AMERICAN > 60; GFR NON-AFRICAN AMERICAN > 60
[2018-01-15] MEDS ORDERED: Potassium Chloride 20 mEq ER Tab PO STA (16:12)
[2018-01-15 16:25] VITALS: BP 117/75; PULSE 93; RESP 16; TEMP 99.1
[2018-01-15 16:42] LABS: BASOPHIL 1 % (0-2); EOSINOPHIL 1 % (0-4); LYMPHOCYTE 6 % (20-40); MONOCYTE 6 % (0-10); MYELOCYTE 1 % (0-0); NEUTROPHIL 85 % (50-75); PLATELET ESTIMATE NORMAL (NORMAL); TOTAL CELLS COUNTED 100
[2018-01-15 16:43] LABS: HYPOCHROMIC SLIGHT
[2018-01-15 17:10] VITALS: O2SAT 98
== END 2018-01-15 17:20 | disposition home or self-care (01) ==
LOC: C.ER 12:33
DX: J11.1 Influenza due to unidentified influenza virus with other respiratory manifestations (principal); I10 Essential (primary) hypertension
CPT/HCPCS: 71045; 80053; 85025; 96361; 96374; 99285; J1885; J7040

== ENCOUNTER 2019-01-18 11:28 | Emergency (ER) | payer MEDICAID ==
[2019-01-18 11:29] VITALS: BMI 22.8
[2019-01-18 11:45] VITALS: BP 142/84; PULSE 78; RESP 16; TEMP 97.7; O2SAT 100
--- NOTE | 2019-01-18 12:18 | C.PDOC ---
History Of Present Illness 63 y/o female presents to the ED complaining of left upper back/trapezius pain for last few days. She denies recent heavy lifting or trauma. Patient reports doing frequent housekeeping and shopping. Pain is described as positionally and digitally reproducible. It is worse after using heating pads and bengay. Otherwise patient denies any numbness, tingling, extremity weakness, chest pain, or SOB. Time Seen by Provider: 01/18/19 12:10 Chief Complaint (Nursing): Back Pain History Per: Patient History/Exam Limitations: no limitations Onset/Duration Of Symptoms: Days Current Symptoms Are (Timing): Still Present Quality Of Discomfort: "Pain" Past Medical History Reviewed: Historical Data, Nursing Documentation, Vital Signs Vital Signs: Last Vital Signs Temp 97.7 F 01/18/19 11:41 Pulse 78 01/18/19 11:41 Resp 16 01/18/19 11:41 BP 142/84 01/18/19 11:41 Pulse Ox 100 01/18/19 11:41 - Medical History PMH: Arthritis, HTN Denies: Chronic Kidney Disease Family History: States: Unknown Family Hx - Social History Hx Alcohol Use: No Hx Substance Use: No - Immunization History Hx Tetanus Toxoid Vaccination: No Hx Influenza Vaccination: No Hx Pneumococcal Vaccination: No Review Of Systems Constitutional: Negative for: Fever Cardiovascular: Negative for: Chest Pain Respiratory: Negative for: Cough, Shortness of Breath Musculoskeletal: Positive for: Back Pain (left upper back/trapezius). Negative for: Neck Pain, Arm Pain Neurological: Negative for: Weakness, Numbness Physical Exam - Physical Exam Appears: Well, Non-toxic, No Acute Distress Skin: Warm, Dry, No Rash Head: Atraumatic, Normacephalic Eye(s): bilateral: Normal Inspection Neck: Normal ROM Chest: Symmetrical Respiratory: No Accessory Muscle Use, Other (No respiratory distress) Back: No Vertebral Tenderness, No Decreased ROM, Other (Left trapezius tenderness, positionally reproducible) Extremity: Normal ROM (of upper extremities), No Deformity, No Swelling, Other (No rash or skin changes) Pulses: Left Radial: Normal, Right Radial: Normal Neurological/Psych: Oriented x3 ED Course And Treatment O2 Sat by Pulse Oximetry: 100 (RA) Pulse Ox Interpretation: Normal Medical Decision Making Medical Decision Making: L trapezius strain/sprain worse w hot showers/Leandro Eastman rubs improved with ice/motrin in ED Disposition Doctor Will See Patient In The: Office Counseled Patient/Family Regarding: Studies Performed, Diagnosis - Disposition Referrals: Holden Merrill MD [Staff Provider] - Disposition: HOME/ ROUTINE Disposition Time: 12:18 Condition: GOOD Additional Instructions: ice packs 1/2 hour per hour, nothing hot no Leandro Eastman no hot showers Motrin/Advil 600 mg every 6 hours as needed for pain Instructions: Muscle Strain (DC) Forms: [employer] (South Korean) - Clinical Impression Clinical Impression: Thoracic back sprain - Scribe Statement The provider has reviewed the documentation as recorded by the Bk Valderrama Provider Attestation: All medical record entries made by the Bk were at my direction and personally dictated by me. I have reviewed the chart and agree that the record accurately reflects my personal performance of the history, physical exam, medical decision making, and the department course for this patient. I have also personally directed, reviewed, and agree with the discharge instructions and disposition.
== END 2019-01-18 12:23 | disposition home or self-care (01) ==
LOC: C.ER 11:28
DX: S23.3XXA Sprain of ligaments of thoracic spine, initial encounter (principal); Y93.E9 Activity, other interior property and clothing maintenance

== ENCOUNTER 2019-04-13 10:37 | Outpatient (CLI) | payer MEDICAID | END 2019-04-13 10:38 | disposition home or self-care (01) | LOC: C.MAMMO 10:37 | DX: Z12.31 Encounter for screening mammogram for malignant neoplasm of breast (principal) ==